=== PATIENT | male | born 1975 | race Two or more races ===

== ENCOUNTER 2016-12-20 18:46 | Emergency (ER) | payer SELFPAY ==
[~2016-12-20] VITALS: Ht 170.2 cm; Wt 72.6 kg
[2016-12-20] MEDS ORDERED: NKM (19:01)
[2016-12-20 19:14] VITALS: BP 155/87
[2016-12-20] MEDS ORDERED: Dicyclomine HCl 10mg/5ml oral soln ORAL ONE (19:15)
[2016-12-20] MEDS ORDERED: Lidocaine 2% Visc 15ml soln ORAL ONE (19:30)
[2016-12-20] MEDS ORDERED: Mylanta II UD 30ml ORAL ONE (19:30)
[2016-12-20 19:37] LABS: BASOPHILS % (AUTO) 0.9 % (0.0-2.0); EOSINOPHILS % (AUTO) 0.8 % (0.0-3.0); LYMPHOCYTES % (AUTO) 19.7 % (20.0-45.0); MEAN CORPUSCULAR HEMOGLOBIN 29.8 PG (27.0-31.0); MEAN CORPUSCULAR HGB CONC 33.8 G/DL (32.0-36.0); MEAN CORPUSCULAR VOLUME 88 FL (80-99); MEAN PLATELET VOLUME 8.6 FL (6.5-10.1); MONOCYTES % (AUTO) 9.7 % (1.0-10.0); NEUTROPHILS % (AUTO) 68.8 % (45.0-75.0); PLATELET COUNT 205 K/UL (150-450); RED CELL DISTRIBUTION WIDTH 11.6 % (11.6-14.8); WHITE BLOOD COUNT 10.7 K/UL (4.8-10.8)
[2016-12-20 19:51] LABS: ALANINE AMINOTRANSFERASE 34 U/L (3-41); ALBUMIN/GLOBULIN RATIO 1.2 (1.0-2.7); ANION GAP 11 (5-15); ASPARTATE AMINO TRANSFERASE 16 U/L (5-40); CALCIUM 9.6 mg/dL (8.6-10.2); CARBON DIOXIDE 28 mEQ/L (20-30); CHLORIDE 96 mEQ/L (98-107); CREATININE 1.1 mg/dL (0.7-1.2); GLOMERULAR FILTRATION RATE > 60 mL/min (>60); HEMOLYSIS 8; LIPASE 33 U/L (< 60); POTASSIUM 3.8 mEQ/L (3.4-4.9); SODIUM 135 mEQ/L (135-145); TOTAL PROTEIN 7.9 g/dL (6.6-8.7)
[2016-12-20 20:06] LABS: APPEARANCE,URINE CLEAR; KETONES,URINE NEGATIVE (NEGATIVE); LEUKOCYTE ESTERASE ,URINE 1+ (NEGATIVE); NITRITE,URINE NEGATIVE (NEGATIVE); PH,URINE 7 (4.5-8.0); PROTEIN,URINE NEGATIVE (NEGATIVE); UROBILINOGEN,URINE NORMAL MG/DL (0.0-1.0)
[2016-12-20 20:14] LABS: BACTERIA,URINE FEW /HPF; MUCUS,URINE FEW /LPF (NONE/OCC); SQUAMOUS EPITHELIAL CELL,UR OCCASIONAL /LPF (NONE/OCC)
--- NOTE | 2016-12-20 20:17 | Emergency Room Report ---
History of Present Illness General Chief Complaint: Abdominal Pain Source: Patient Present Illness HPI 41 YO Male presents to the ED c/o epigastric pain. pt. reports pain is worse immediately after eating food. denies blood in the stool or dark tarry/black stools. pt. denies pmhx. Patient rates his pain as 10 out of 10 in severity and states that anytime he eats food or drinks liquid in his pain is exacerbated. Patient states her Zantac and Mylanta several days ago which provided some relief however symptoms returned with eating. Pt. states as a result he has not been eating or drinking because he does not want to exacerbate his symptoms. Patient denies nausea, vomiting, fevers, chills. Patient reports one episode of diarrhea 4 days ago. Patient states his last bowel movement was this morning and was normal. he denies previous episodes of symptoms in the past. Denies medical history otherwise. Pt denies ETOH, NSAID use. he reports drinking caffeine at least 4x daily and eats spicy foods regularly. He denies ill contacts, rashes or recent travel. Denies CP, Palpitations, LOC, AMS, dizziness, Changes in Vision, Sensation, paresthesias, or a sudden severe headache. Allergies: Coded Allergies: Pork (Verified Allergy, Unknown, 12/20/16) Patient History Past Medical History: see triage record Past Surgical History: none Pertinent Family History: none Reviewed Nursing Documentation: PMH: Agreed, PSxH: Agreed Nursing Documentation-PMH Past Medical History: No Stated History Review of Systems All Other Systems: negative except mentioned in HPI Physical Exam Vital Signs Date Time Temp Pulse Resp B/P Pulse Ox O2 Delivery O2 Flow Rate FiO2 12/20/16 18:56 98.6 102 16 161/81 97 Room Air Sp02 EP Interpretation: reviewed, normal General Appearance: no apparent distress, alert, GCS 15, non-toxic Head: normocephalic, atraumatic Eyes: bilateral eye PERRL, bilateral eye normal inspection ENT: hearing grossly normal, normal pharynx, no angioedema, normal voice Neck: full range of motion, supple/symm/no masses Respiratory: lungs clear, normal breath sounds, speaking full sentences Cardiovascular #1: regular rate, rhythm, no edema Gastrointestinal: normal bowel sounds, soft, no guarding, no rebound, tenderness - midline/epigastric ttp. , other - TTP to midline/epigastric area ( mild) , Negative [place] signs, Negative MacBurney's sign, Negative Rosvigns Sign, Negative Psoas, No Peritoneal signs. Rectal: deferred Genitourinary: normal inspection, no CVA tenderness Musculoskeletal: back normal, gait/station normal, normal range of motion, non- tender Neurologic: alert, oriented x3, responsive, motor strength/tone normal, sensory intact, speech normal Psychiatric: judgement/insight normal, memory normal, mood/affect normal Skin: normal color, no rash, warm/dry, well hydrated Medical Decision Making PA Attestation Dr Pratt is my supervising Physician whom patient management has been discussed with. Diagnostic Impression: Primary Impression: Peptic ulcer Additional Impressions: Gastritis Qualified Codes: K29.60 - Other gastritis without bleeding Urinary tract infection Qualified Codes: N30.00 - Acute cystitis without hematuria ER Course Pt. presents to the ED c/o epigastric pain. pt. reports pain is worse immediately after eating food. denies blood in the stool or dark tarry/black stools. pt. denies pmhx. Ddx considered but are not limited to Diverticulitis, acute appy, diarrhea,UC, PUD, GE, pancreatitis, gallstone Vital signs: mildly tachycardic at 105 bpm, pt. is afebrile H&PE are most consistent with possible peptic ulcer/gastritis, will do abdominal lab-work up. mild ttp to midline epigastric area, other williamson abdominal exam was benign. no evidence to suggest acute abdomen, or need for CT/ US. mild dehydration is suspected due to hot weather and avoidance of food/ drinks ORDERS: CBC, CMP, lipase, : all unremarkable -UA: few bacteria, elevated Wbc's and leukocytes indicating UTI ED INTERVENTIONS: - - 500NS, Zantac 50mg, Mylanta and viscous lidocaine 1% Pt. states his pain has been relieved with ED interventions. I do not suspect an emergent condition at this time. with current presentation pt. is stable for close outpatient follow up. DISCHARGE: At this time pt. is stable for d/c to home. Will provide printed patient care instructions, and any necessary prescriptions. Care plan and follow up instructions have been discussed with the patient prior to discharge. Labs Test 12/20/16 14:58 12/20/16 19:20 Urine Color Pale yellow Urine Appearance Clear Urine pH 7 (4.5-8.0) Urine Specific [place] 1.015 (1.005-1.035) Urine Protein Negative (NEGATIVE) Urine Glucose (UA) Negative (NEGATIVE) Urine Ketones Negative (NEGATIVE) Urine Occult Blood 1+ (NEGATIVE) Urine Nitrite Negative (NEGATIVE) Urine Bilirubin Negative (NEGATIVE) Urine Urobilinogen Normal MG/DL (0.0-1.0) Urine Leukocyte Esterase 1+ (NEGATIVE) Urine RBC 2-4 /HPF (0 - 0) Urine WBC 5-10 /HPF (0 - 0) Urine Squamous Epithelial Cells Occasional /LPF Urine Bacteria Few /HPF (NONE) Urine Mucus Few /LPF (NONE/OCC) White Blood Count 10.7 K/UL (4.8-10.8) Red Blood Count 5.40 M/UL (4.70-6.10) Hemoglobin 16.1 G/DL (14.2-18.0) Hematocrit 47.6 % (42.0-52.0) Mean Corpuscular Volume 88 FL (80-99) Mean Corpuscular Hemoglobin 29.8 PG (27.0-31.0) Mean Corpuscular Hemoglobin Concent 33.8 G/DL (32.0-36.0) Red Cell Distribution Width 11.6 % (11.6-14.8) Platelet Count 205 K/UL (150-450) Mean Platelet Volume 8.6 FL (6.5-10.1) Neutrophils (%) (Auto) 68.8 % (45.0-75.0) Lymphocytes (%) (Auto) 19.7 % (20.0-45.0) Monocytes (%) (Auto) 9.7 % (1.0-10.0) Eosinophils (%) (Auto) 0.8 % (0.0-3.0) Basophils (%) (Auto) 0.9 % (0.0-2.0) Sodium Level 135 mEQ/L (135-145) Potassium Level 3.8 mEQ/L (3.4-4.9) Chloride Level 96 mEQ/L (98-107) Carbon Dioxide Level 28 mEQ/L (20-30) Anion Gap 11 (5-15) Blood Urea Nitrogen 6 mg/dL (7-23) Creatinine 1.1 mg/dL (0.7-1.2) Estimat Glomerular Filtration Rate > 60 mL/min (>60) Glucose Level 111 mg/dL (74-106) Calcium Level 9.6 mg/dL (8.6-10.2) Total Bilirubin 0.8 mg/dL (0.0-1.2) Aspartate Amino Transf (AST/SGOT) 16 U/L (5-40) Alanine Aminotransferase (ALT/SGPT) 34 U/L (3-41) Alkaline Phosphatase 46 U/L (40-129) Total Protein 7.9 g/dL (6.6-8.7) Albumin 4.4 g/dL (3.5-5.2) Globulin 3.5 g/dL Albumin/Globulin Ratio 1.2 (1.0-2.7) Lipase 33 U/L (< 60) Last Vital Signs Date Time Temp Pulse Resp B/P Pulse Ox O2 Delivery O2 Flow Rate FiO2 12/20/16 19:14 98.6 106 16 155/87 97 Room Air Disposition: HOME, SELF-CARE Condition: Stable Scripts Sucralfate* (CARAFATE*) 1 Gm Tablet 1 GM ORAL FOUR TIMES A DAY for 5 Days, #20 TAB Prov: Steffanie Gates 12/20/16 Ranitidine Hcl* (ZANTAC*) 150 Mg Tablet 150 MG ORAL TWICE A DAY for 14 Days, #30 TAB Prov: Steffanie Gates 12/20/16 Cephalexin* (KEFLEX*) 500 Mg Capsule 500 MG ORAL EVERY 12 HOURS for 7 Days, #14 CAP 0 Refills Prov: Steffanie Gates 12/20/16 Referrals: NOT CHOSEN IPA/,REFERRING (PCP) Patient Instructions: Food Choices for Peptic Ulcer Disease, Gastritis, Adult, Urinary Tract Infection, [id number] Additional Instructions: Take medications as directed. Follow up with a Primary Care Provider in 3-5 days, even if your symptoms have resolved. --Please review list of primary care clinics, if you do not already have a primary care provider Return sooner to ED if new symptoms occur, or current symptoms become worse. - Please note that this Emergency Department Report was dictated using [employer] representative technology software, occasionally this can lead to erroneous entry secondary to interpretation by the dictation equipment. Steffanie Gates Dec 20, 2016 20:17
[2016-12-20] MEDS ORDERED: ZANTAC150 MG ORAL (20:25)
[2016-12-20] MEDS ORDERED: CARAFATE1 G1 ORAL (20:25)
[2016-12-20] MEDS ORDERED: CEPHALEXIN500 MG ORAL (20:25)
[2016-12-20 21:00] VITALS: BP 155/87
== END 2016-12-20 21:05 | disposition home or self-care (01) ==
LOC: EMR 19:29
DX: K27.9 Peptic ulcer, site unspecified, unspecified as acute or chronic, without hemorrhage or perforation (principal); K29.60 Other gastritis without bleeding; N30.00 Acute cystitis without hematuria; Z91.018 Allergy to other foods
CPT/HCPCS: 36415; 80053; 81003; 83690; 85025; 96374; 99284; J7040